=== PATIENT | male | born 1945 | race Caucasian/White ===

== ENCOUNTER 2020-12-05 02:04 | Inpatient (IN) | payer MEDICARE ==
[~2020-12-05] VITALS: Ht 182.9 cm; Wt 91.5 kg
[~2020-12-05 02:04] MED LIST: Percocet 5-3251 EACH PO; VICODIN ES 7.51 EACH PO; Zofran Odt4 MG SL
[2020-12-05] MEDS ORDERED: ASPI81CH PO (02:16)
[2020-12-05 03:56] LABS: BASOPHILS ABSOLUTE AUTO 0.02 K/mm3 (0.00-0.23); BASOPHILS PERCENT AUTO 0 % (0-2); EOSINOPHILS ABSOLUTE AUTO 0.01 K/mm3 (0.00-0.68); EOSINOPHILS PERCENT AUTO 0 % (0-6); Hematocrit 29.7 % (37.0-53.0); Hemoglobin 10.8 g/dL (13.5-17.5); IMMATURE GRAN ABSOLUTE AUTO 0.03 K/mm3 (0.00-0.10); IMMATURE GRAN PERCENT AUTO 1 % (0-1); LYMPHOCYTES ABSOLUTE AUTO 0.49 K/mm3 (0.84-5.20); LYMPHOCYTES PERCENT AUTO 10 % (21-46); MONOCYTES ABSOLUTE AUTO 0.75 K/mm3 (0.16-1.47); MONOCYTES PERCENT AUTO 15 % (4-13); Mean Corpuscular HGB 40.9 pg (26.0-34.0); Mean Corpuscular HGB Conc 36.4 g/dL (31.5-36.5); Mean Corpuscular Volume 113 fL (80-100); Mean Platelet Volume 12.5 fL (9.1-12.4); NEUTROPHILS PERCENT AUTO 74 % (41-73); NRBC ABSOLUTE 0.03 K/mm3 (0.00-0.02); NRBC Auto 0.6 /100 WBC (0.0-0.2); Platelet Count 52 K/mm3 (150-400); RDW Coefficient Variation 15.1 % (11.7-14.2); RDW Standard Deviation 61.7 fL (35.1-46.3); Red Blood Cell Count 2.64 M/mm3 (4.30-5.90)
[2020-12-05 04:08] LABS: International Normalized Ratio 1.89; Prothrombin Time Results 19.5 Sec (9.7-11.5)
[2020-12-05 04:10] LABS: Creatine Kinase MB 1.8 ng/mL (0.0-3.6); Ethanol (Alcohol), Blood, Med <3 mg/dL
[2020-12-05 04:19] LABS: Acetaminophen, Random <2.0 ug/mL (10.0-30.0); Alanine Aminotransfer (ALT/SGP 29 U/L (12-78); Albumin, Blood 2.7 g/dL (3.4-5.0); Albumin/Globulin Ratio 0.6 (0.8-1.8); Alk Phos 84 U/L (50-136); Anion Gap 16 mmol/L (6-16); Aspartate Aminotrans (AST/SGOT 149 U/L (12-37); Bilirubin, Total 16.6 mg/dL (0.1-1.0); Blood Urea Nitrogen 28 mg/dL (8-24); Bun/Creatinine Ratio 25.5 (12.0-20.0); CO2, Blood 26 mmol/L (21-32); CPK Creatine Kinase 276 U/L (39-308); Chloride, Blood 98 mmol/L (98-108); Creatine Kinase MB Index 0.7 (0.0-4.0); Globulin, Blood 4.4 g/dL (2.2-4.0); Glomerular Filtration Rate >60 (60-); Glucose, Blood 128 mg/dL (70-99); Magnesium, Blood 1.1 mg/dL (1.6-2.4); Phosphorus, Blood 1.6 mg/dL (2.5-4.9); Potassium, Blood 4.6 mmol/L (3.5-5.5); Salicylate <1.7 mg/dL (2.8-20.0); Sodium, Blood 140 mmol/L (136-145); Total Protein, Blood 7.1 g/dL (6.4-8.2)
--- NOTE | 2020-12-05 07:40 | NUR ---
RECIEVED REPORT FROM ОЛЬГА GRIFFIN. PATIENT TO ROOM AT 0645 VIA STRETCHER. CHARGE NURSE KRISTIAN IN ROOM UPON PATIENT ARRIVAL.
--- NOTE | 2020-12-05 08:06 | NUR ---
ADMIT NOTE PATIENT ADMITTED FROM THE ER AT APPROX 0645. PATIENT PROVIDED WITH A BED BATH AND LR BOLUS STARTED. PATIENT SETTLED IN AND ORIENTED TO THE ROOM, UNIT, AND CALL LIGHT. PATIENT ABLE TO STATE THAT HE WAS AT THE HOSPITAL BUT THOUGHT HE MIGHT BE IN [place], PATIENT APPEARS TO REORIENT WELL AT THIS TIME. PATIENT COOPERATIVE UPON ADMIT.
--- NOTE | 2020-12-05 10:48 | NUR ---
PT SLEEPING THROUGHOUT THE MORNING. ALERT TO HIMSELF AND PLACE. NOT ABLE TO STATE DATE. IRRITATED WITH QUESTIONS AND CARE AND STATES "LEAVE ME ALONE". POWERGLIDE IN XIMENA. AND IV TO LEFT WRIST. THIAMINE, POTASSIUM PHOSPHATE, ANTIBIOTICS AND MAG INFUSING. LUNGS SOUNDING COARSE WITH EXPIRATORY WHEEZE. ON 2 L O2 SATING ABOVE 92%. TELE SHOWING SINUS WITH PVC'S AND PAC'S. DENIES PAIN. MID-MOD EDEMA NOTED IN BLE. BRUISING SCATTERED THROUGHOUT. SKIN YELLOW IN COLORING. EDUCATED WEALTH MANAGEMENT DIRECTOR LIGHT, SAFETY AND FALL PREVENTION. THIS AM CIWA 4, PATIENT NAUSEOUS, MEDICATED PER EMAR WITH GOOD RELIEF. WILL CONTINUE TO MONITOR.
[2020-12-05 14:38] LABS: Albumin, Blood 2.2 g/dL (3.4-5.0); Anion Gap 8 mmol/L (6-16); Blood Urea Nitrogen 27 mg/dL (8-24); Bun/Creatinine Ratio 24.5 (12.0-20.0); CO2, Blood 32 mmol/L (21-32); Calcium, Blood 8.6 mg/dL (8.5-10.1); Chloride, Blood 101 mmol/L (98-108); Glomerular Filtration Rate >60 (60-); Glucose, Blood 165 mg/dL (70-99); Magnesium, Blood 1.9 mg/dL (1.6-2.4); Phosphorus, Blood 1.8 mg/dL (2.5-4.9); Potassium, Blood 2.8 mmol/L (3.5-5.5); Sodium, Blood 141 mmol/L (136-145)
--- NOTE | 2020-12-05 15:55 | NUR ---
PT SON IN ROOM VISITING. SLEEPING ON AND OFF. DENIES PAIN. WHEN DOING CARES PT STATES "I JUST WANT TO BE LEFT ALONE". CIWA 8, ATIVAN PROVIDED PER EMAR. TREMOR OBSERVED IN BILATERAL HANDS. ATTENDS IN PLACE. BATHROOM/ELIMINATION OFFERED HOURLY. VITAL SIGNS STABLE. WILL CONTINUE TO MONITOR.
--- NOTE | 2020-12-05 16:54 | NUR ---
Pt's son requested a meeting with Palliative today. Met with pt's son Clint in pt's room. Pt is non-responsive at this time, but resp are even, unlabored and he is on 02. FLACC scale shows pain at 0 at this time. Clint states the patient has been a heavy drinker for as long as he can remember, and over time, the pt's overall condition has declined. He has maintained a relationship with the pt, but the continued drinking has put a strain on things. Clint currently lives in [place], and is concerned about planning for the future. He states he and his dad recently had a conversation in which the pt told him he would not want to be resuscitated, have a feeding tube or be placed on mechanical ventilation. I assisted pt with filling out a POLST, and will request signature by the hospitalist this evening. Pt's son Clint is aware that pt's condition could improve slightly, or may continue to decline.
--- NOTE | 2020-12-05 18:24 | NUR ---
PT ALERT TO SELF. LETHARGIC AND SLEEPING THROUGHOUT THE SHIFT. ON 1 L 02 SATING ABOVE 92%. TELE SHOWING AFIB, HR 90-100'S. DENIES PAIN. ASKS TO BE LEFT ALONE WHEN STAFF IN ROOM. SON IN TO VISIT THIS AFTERNOON AND HAD MEETING WITH PALLIATIVE CARE. POLST IN ROOM TO BE SIGNED. LR, THIAMINE AND K PHOS INFUSING. NEW ORDERS FOR PRN BLADDER SCAN AND STRAIGHT CATH PLACED. ENULOSE GIVEN X3 THIS SHIFT. SKIN JAUNDICED AND BRUISING/DISCOLORATION THROUGHOUT. MEPILEX PLACED OVER RED COCCYX. ATTENDS IN PLACE. GLASSES, CELLPHONE AND WALLET AT BEDSIDE. Q2 TURNING. PT ABLE TO TURN SELF IN BED. VITAL SIGNS REMAIN STABLE. WILL CONTINUE TO MONITOR AND REPORT OFF.
--- NOTE | 2020-12-05 18:49 | NUR ---
DNR BAND PLACED ON RIGHT WRIST, VERIFIED WITH MARCO ANTONIO RN.
[2020-12-06 04:01] LABS: BASOPHILS ABSOLUTE AUTO 0.02 K/mm3 (0.00-0.23); BASOPHILS PERCENT AUTO 1 % (0-2); EOSINOPHILS ABSOLUTE AUTO 0.04 K/mm3 (0.00-0.68); EOSINOPHILS PERCENT AUTO 1 % (0-6); Hematocrit 27.2 % (37.0-53.0); Hemoglobin 9.6 g/dL (13.5-17.5); IMMATURE GRAN ABSOLUTE AUTO 0.03 K/mm3 (0.00-0.10); IMMATURE GRAN PERCENT AUTO 1 % (0-1); LYMPHOCYTES ABSOLUTE AUTO 0.57 K/mm3 (0.84-5.20); LYMPHOCYTES PERCENT AUTO 16 % (21-46); MONOCYTES ABSOLUTE AUTO 0.49 K/mm3 (0.16-1.47); MONOCYTES PERCENT AUTO 13 % (4-13); Mean Corpuscular HGB 40.2 pg (26.0-34.0); Mean Corpuscular HGB Conc 35.3 g/dL (31.5-36.5); Mean Corpuscular Volume 114 fL (80-100); Mean Platelet Volume 10.9 fL (9.1-12.4); NEUTROPHILS ABSOLUTE AUTO 2.53 K/mm3 (1.96-9.15); NEUTROPHILS PERCENT AUTO 69 % (41-73); RDW Coefficient Variation 15.3 % (11.7-14.2); RDW Standard Deviation 64.7 fL (35.1-46.3); Red Blood Cell Count 2.39 M/mm3 (4.30-5.90); White Blood Cell Count 3.68 K/mm3 (4.00-11.30)
[2020-12-06 04:10] LABS: Platelet Count 41 K/mm3 (150-400)
[2020-12-06 04:22] LABS: Alanine Aminotransfer (ALT/SGP 30 U/L (12-78); Albumin, Blood 2.2 g/dL (3.4-5.0); Albumin/Globulin Ratio 0.6 (0.8-1.8); Alk Phos 79 U/L (50-136); Anion Gap 7 mmol/L (6-16); Aspartate Aminotrans (AST/SGOT 114 U/L (12-37); Bilirubin, Total 12.4 mg/dL (0.1-1.0); Blood Urea Nitrogen 24 mg/dL (8-24); Bun/Creatinine Ratio 25.8 (12.0-20.0); CO2, Blood 29 mmol/L (21-32); Calcium, Blood 8.1 mg/dL (8.5-10.1); Chloride, Blood 103 mmol/L (98-108); Creatinine, Blood 0.93 mg/dL (0.60-1.20); Globulin, Blood 3.7 g/dL (2.2-4.0); Glomerular Filtration Rate >60 (60-); Glucose, Blood 134 mg/dL (70-99); Magnesium, Blood 1.6 mg/dL (1.6-2.4); Phosphorus, Blood 2.1 mg/dL (2.5-4.9); Potassium, Blood 2.8 mmol/L (3.5-5.5); Sodium, Blood 139 mmol/L (136-145); Total Protein, Blood 5.9 g/dL (6.4-8.2)
--- NOTE | 2020-12-06 05:59 | NUR ---
SHIFT SUMMARY PT WAS LETHARGIC AND DIFFICULT TO AROUSE T/O THE NIGHT. HE NEEDED CONTINOUS STIMULATION TO KEEP HIS EYES OPEN. PT WAS ABLE TO WAKE UP ENOUGH TO TAKE PO LACTULOSE AND SWALLOW, PT STATED WITHOUT DIFFICULTIES. SPEECH WAS GARBLED AND DIFFICULT TO UNDERSTAND. PT WAS CONFUSED AT TIMES SAYING "I WANT DONT LIKE PEANUTS". NEURO STATUS WAS UNCHANGED T/O THE NIGHT. PT WAS VERY WEAK, COULD ONLY LIFT ARMS SLIGHTLY. TRACK SWEEPER WAS EQUAL AND WEAK IN BOTH HANDS. PT ABLE TO FOLLOW MOST SIMPLE COMMANDS. VITALS WERE STABLE. AFIB LOW 100'S AVG. PT WAS INCONTINENT OF URINE T/O THE NIGHT WITH SEVERAL LARGE EPISODS NEEDING COMPLETE BED CHANGE. URINE VERY DARK/ORNAGE WITH FOUL ODOR. PT SLEPT T/O MOST OF THE NIGHT.
[2020-12-06 09:09] LABS: Source, Urine Catheter
[2020-12-06 09:21] LABS: Blood, Urine 1+ (Neg); Glucose Qualitative, Urine Neg (Neg); Ketones, Urine 1+ (Neg); Leukocyte Esterase, Urine 1+ (Neg); Nitrite, Urine Neg (Neg); Protein, Urine Neg (Neg); Urobilinogen, Urine 4+ (Normal); pH, Urine 6.5 (5.0-8.0)
[2020-12-06 09:38] LABS: Bilirubin, Urine 3+ (Neg)
[2020-12-06 09:45] LABS: Appearance, Urine Clear (Clear); Color, Urine Amber (P-Yellow)
[2020-12-06 09:48] LABS: Bacteria Few /hpf; Hyaline Casts 0-2 /lpf (0-2); Red Blood Cells, Urine 0-2 /hpf (0-2); Squamous Epithelial Cells Few /hpf (Few); White Blood Cells, Urine 0-2 /hpf (0-5)
--- NOTE | 2020-12-06 11:44 | NUR ---
Pt is lethargic, but engaging in some conversation. States he knows he is in the hospital. Able to follow directions, also states that he is not in pain, and says, "thank you very much " after care is given. Particpating in oral care, and attempting to assist with repositioning. Still some confusion and lethargy.
[2020-12-06 14:59] LABS: Albumin, Blood 1.8 g/dL (3.4-5.0); Anion Gap 7 mmol/L (6-16); Blood Urea Nitrogen 23 mg/dL (8-24); Bun/Creatinine Ratio 21.1 (12.0-20.0); CO2, Blood 30 mmol/L (21-32); Calcium, Blood 7.6 mg/dL (8.5-10.1); Chloride, Blood 103 mmol/L (98-108); Creatinine, Blood 1.09 mg/dL (0.60-1.20); Glomerular Filtration Rate >60 (60-); Glucose, Blood 134 mg/dL (70-99); Phosphorus, Blood 2.8 mg/dL (2.5-4.9); Potassium, Blood 3.5 mmol/L (3.5-5.5); Sodium, Blood 140 mmol/L (136-145)
--- NOTE | 2020-12-06 17:19 | NUR ---
SUMMARY The pt is still sleepy, but more coherent in conversation. Responding to simple directions. He had some water to drink, and said that it was enough. Incontinent of 4+ liquid stools today, the last 3 were dark brown in color. Asked if he needed to use the urinal, and he said that he didn't. Sleeping in between care.
--- NOTE | 2020-12-07 03:11 | NUR ---
CALLED DR ROBERTO REGARDING PT NEEDING AN ORDER OF TYLENOL DUE TO TEMP. ORDER BY TELEPHONE OF TYLENOL [address] Q6.
[2020-12-07 04:39] LABS: BASOPHILS ABSOLUTE AUTO 0.02 K/mm3 (0.00-0.23); BASOPHILS PERCENT AUTO 0 % (0-2); EOSINOPHILS ABSOLUTE AUTO 0.04 K/mm3 (0.00-0.68); EOSINOPHILS PERCENT AUTO 1 % (0-6); Hemoglobin 8.9 g/dL (13.5-17.5); IMMATURE GRAN ABSOLUTE AUTO 0.05 K/mm3 (0.00-0.10); IMMATURE GRAN PERCENT AUTO 1 % (0-1); LYMPHOCYTES ABSOLUTE AUTO 0.63 K/mm3 (0.84-5.20); LYMPHOCYTES PERCENT AUTO 9 % (21-46); MONOCYTES ABSOLUTE AUTO 1.01 K/mm3 (0.16-1.47); MONOCYTES PERCENT AUTO 15 % (4-13); Mean Corpuscular HGB 40.5 pg (26.0-34.0); Mean Corpuscular HGB Conc 35.6 g/dL (31.5-36.5); Mean Corpuscular Volume 114 fL (80-100); Mean Platelet Volume 10.4 fL (9.1-12.4); NEUTROPHILS ABSOLUTE AUTO 5.12 K/mm3 (1.96-9.15); NEUTROPHILS PERCENT AUTO 75 % (41-73); NRBC ABSOLUTE 0.02 K/mm3 (0.00-0.02); NRBC Auto 0.3 /100 WBC (0.0-0.2); Platelet Count 59 K/mm3 (150-400); RDW Coefficient Variation 16.4 % (11.7-14.2); RDW Standard Deviation 66.9 fL (35.1-46.3); White Blood Cell Count 6.87 K/mm3 (4.00-11.30)
[2020-12-07 04:57] LABS: Albumin, Blood 1.9 g/dL (3.4-5.0); Albumin/Globulin Ratio 0.6 (0.8-1.8); Bilirubin, Total 11.1 mg/dL (0.1-1.0); Bun/Creatinine Ratio 21.4 (12.0-20.0); Calcium, Blood 7.5 mg/dL (8.5-10.1); Creatinine, Blood 1.26 mg/dL (0.60-1.20); Globulin, Blood 3.3 g/dL (2.2-4.0); Magnesium, Blood 1.6 mg/dL (1.6-2.4); Potassium, Blood 3.3 mmol/L (3.5-5.5); Total Protein, Blood 5.2 g/dL (6.4-8.2)
--- NOTE | 2020-12-07 05:28 | NUR ---
SHIFT SUMMARY PT IS ALERT AT TIMES AND IS CONVERSING WITH STAFF. HE HAS BEEN FOLLOWING COMMANDS AND THERE ARE NO SIGNS OF AGITAION BUT SOME CONFUSION AT TIMES. HE WILL ASK FOR ICE CHIPS. HE HAS ALSO ASKED IF HE CAN TALK TO THE DOCTOR SO THAT HE CAN GO HOME. VITALS ARE STABLE AND THERE ARE NO ACUTE CHANGES. PT IS SATING WITH >92% ON ROOM AIR AND DENIES SOB. PT DENIES PAIN. PT HAS HAD A COUPLE OF LOOSE STOOLS DURING THE SHIFT. PT HAS WEAKNESS AND IS BEDREST.
--- NOTE | 2020-12-07 07:53 | NUR ---
Pt is awake, talking, and saying that he would really like to get out of here. STates he would like a pepsi. Vital signs taken, and blood pressure noted lower than yesterday. He is alert, and says that he wants to go home. Able to sit on side of bed, and transfer to chair with moderate assistance, using walker and the gait belt. STates that feels better. Given a pepsi to drink. He has no problem staying awake right now. STates that he is not hungry. Also states that he feels a little short winded with the activity. No dyspena noted, carrying on conversation, slowly, but appropriately.
--- NOTE | 2020-12-07 10:02 | NUR ---
Dr. Mercer here to see the patient. Silvia GRECO is working with the patient.
--- NOTE | 2020-12-07 13:51 | NUR ---
Pt states that he is having trouble at times swallowing. He does not have any teeth. Diet changed to puree. Waiting for swallow eval with speech therapist. Pt sitting upright, drinking pepsi and milk at this time. Declined his tomato soup, applesauce, pudding and soft diet.
--- NOTE | 2020-12-07 14:15 | NUR ---
Pt states that he does not feel urge to void. Noted bladder scan order from admission. Bladder scan done, 214 cc urine noted. Pt denies urge to void. He is sleepy.
--- NOTE | 2020-12-07 18:36 | NUR ---
Pt has been sleepy today, but wakes up very easily and when awake is conversant, able to cooperate with care, able to eat and drink with assistance, and help with transfers using the walker. He was up in the chair for breakfast and dinner, for a total of about 4-5 hours, also during that time he was working with therapists. he is still confused, but oriented to person, place, and following directions. Lacks insight into his limitations and current illness. Very weak, requiring a lot of assistance for his meals, toileting, repositioning in bed, and hygiene for incontinence of stool and urine. He had two very large liquid brown stools this evening, over which he showed no control of his bowels, although we did attempt to get him to the BSC the second time. He is sleeping when not being given care by staff. shows no attempt to get out of bed independently, but bed/tab alarms are in use when he is in the bed or the chair.
--- NOTE | 2020-12-07 20:59 | NUR ---
ASSUME CARE PT IS ALERT. HE IS ORIENTED TO PLACE AND SELF. PT IS PLEASANT AND MORE ALERT THAN LAST NIGHT AND IS CONVERSING MORE. PT ANSWERS QUESTIONS AND ASKS FOR WHAT HE IS NEEDING. PT IS WEAK AND NEEDS ASSISTANCE FOR ROLLING AND REPOSITIONING. PT HAS BRIEF IN PLACE AND IS INCONT OF STOOL AND URINE.
--- NOTE | 2020-12-07 21:47 | NUR ---
PT SON DOREEN CALLED. THIS NURSE WENT INTO THE ROOM TO HAVE VERBAL CONSENT FROM PATIENT FOR UPDATE AND PATIENT REFUSED. STS "NO, I WILL CALL HIM LATER" AND REACHED FOR HIS PHONE AND HELD IT IN HAND BUT DID NOT ATTEMPT TO TURN IT ON OR DIAL.
--- NOTE | 2020-12-07 22:50 | NUR ---
CALLED REPORT TO MORIS ROLON ON MEDICAL FLOOR. PT TX TO ROOM 333.
--- NOTE | 2020-12-07 23:35 | NUR ---
ASSUMED CARE. JJ JUST ARRIVED TO THE UNIT, RM 333. ALERT AND ORIENTED X2, VERY FATIQUED. JAUNDICE. LUNGS CLEAR WITH DIMINISHED BASES. HR IRREGULAR, ON TELE. ATTENDS IN PLACE, DRY HE JUST GOT A BED BATH AND COMPLETE CHANGE. NO EDEMA BLE AND HAND. ABDOMIN SLIGHTLY DISTENDED, FIRM, HYPERACTIVE BT. BEEN HAVING LOOSE STOOLS. DID NOT REMEMBER HOW TO USE THE CALL LIGHT, ORIENTED HIM TO IT AGAIN AND THE ROOM. BED ALARM IS ON. CALL LIGHT IN HAND. WILL CONTINUE TO MONITOR.
--- NOTE | 2020-12-08 05:20 | NUR ---
SHIFT SUMMARY: PATIENT ARRIVED TO THE FLOOR AROUND 3 AM. ALERT ORIENTED TO SELF AND PLACE, CONFUSED OTHER TIMES. FOLLOWS DIRECTION WELL. ABLE TO ANSWER QUESTIONS. DENIED ANY PAIN. JAUDICE T/O. ABDOMIN SLIGHT DISTENTION, FIRM, HYPERACTIVE BOWEL TONES. REDNESS IN GROIN AND BOTTOM, CREAM APPLIED. URINE IS VERY DARK IN COLOR, SLIGHT ODOR. INCONTIENT. NO STOOLS SINCE HE GOT TO THE FLOOR. SLEEPS WELL. BED ALARM IS ON, CALL LIGHT IS IN REACH. WILL CONTINUE TO MONITOR TILL DAYSHIFT ARRIVES.
[2020-12-08 05:32] LABS: BASOPHILS ABSOLUTE AUTO 0.02 K/mm3 (0.00-0.23); BASOPHILS PERCENT AUTO 0 % (0-2); EOSINOPHILS ABSOLUTE AUTO 0.04 K/mm3 (0.00-0.68); EOSINOPHILS PERCENT AUTO 1 % (0-6); Hematocrit 24.3 % (37.0-53.0); Hemoglobin 8.4 g/dL (13.5-17.5); IMMATURE GRAN ABSOLUTE AUTO 0.04 K/mm3 (0.00-0.10); IMMATURE GRAN PERCENT AUTO 1 % (0-1); LYMPHOCYTES ABSOLUTE AUTO 0.74 K/mm3 (0.84-5.20); LYMPHOCYTES PERCENT AUTO 14 % (21-46); MONOCYTES ABSOLUTE AUTO 0.87 K/mm3 (0.16-1.47); MONOCYTES PERCENT AUTO 17 % (4-13); Mean Corpuscular HGB Conc 34.6 g/dL (31.5-36.5); Mean Corpuscular Volume 116 fL (80-100); Mean Platelet Volume 10.5 fL (9.1-12.4); NEUTROPHILS ABSOLUTE AUTO 3.45 K/mm3 (1.96-9.15); NEUTROPHILS PERCENT AUTO 67 % (41-73); RDW Coefficient Variation 16.6 % (11.7-14.2); RDW Standard Deviation 69.5 fL (35.1-46.3); White Blood Cell Count 5.16 K/mm3 (4.00-11.30)
[2020-12-08 05:39] LABS: Platelet Count 49 K/mm3 (150-400)
[2020-12-08 05:58] LABS: Albumin, Blood 1.8 g/dL (3.4-5.0); Albumin/Globulin Ratio 0.6 (0.8-1.8); Bilirubin, Total 11.2 mg/dL (0.1-1.0); Bun/Creatinine Ratio 21.2 (12.0-20.0); Calcium, Blood 7.4 mg/dL (8.5-10.1); Creatinine, Blood 1.89 mg/dL (0.60-1.20); Globulin, Blood 3.2 g/dL (2.2-4.0); Magnesium, Blood 1.7 mg/dL (1.6-2.4); Phosphorus, Blood 2.6 mg/dL (2.5-4.9); Potassium, Blood 3.2 mmol/L (3.5-5.5)
--- NOTE | 2020-12-08 07:57 | NUR ---
DENIES ANY AUDITORY OR VISUAL HALLUCINATIONS.STS WAS HEARING AND SEEING THINGS IN ROOM LAST NIGHT. STS NORMALLY HAS SLIGHT TREMOR RT HAND. KNOWS MONTH AND "AROUND THE 4TH".CALL LIGHT CLOSE BY. AWARE NEEDS TO CALL FOR ASSISTANCE. STS NORMALLY LIVES ALONE. UNLABORED RESPIRATIONS. IN AFIB. WCTM
--- NOTE | 2020-12-08 08:40 | NUR ---
PER SPEECH THERAPY PATIENT NPO TILL EVALUATED. PATIENT ALREADY HAD 1/2 OF BREAKFAST. NO COUGHING HEARD FROM PATIENT THIS RN WAS ON COMPUTER OUTSIDE OF ROOM.
--- NOTE | 2020-12-08 09:30 | NUR ---
RECEIVED CALL FROM [facility] TECH WHO STS PATIENT IN SR W/PAC'S. HAS NOT BEEN IN AFIB TODAY AND WHEN ASKED TO CHECK RYTHMS FOR LAST NIGHT, STS SR W/PAC'S. WAYNE
--- NOTE | 2020-12-08 13:00 | NUR ---
HAVING VISUAL HALLUCINATIONS. ASKS RN TO PICK SOME OF THE GRAPES AND POINTS TO THE WALL. TALKS ABOUT THE HORSES OUT IN THE PARKING LOT AND STS THEY ARE NOT THERE RIGHT NOW. ASKS FOR THE PIE HE PUT IN THE FRIG "BEFORE IT GOES BAd." WAYNE
--- NOTE | 2020-12-08 17:54 | NUR ---
ALERT TO SELF. BROUGHT IN FEW DAYS AGO FOR FAILURE TO THRIVE AND WEAKNESS. UNSURE WHO BROUGHT HIM IN OR IF HE CALLED AMBULANCE(?). DRINKS ETOH DAILY AND WHEN ASKED ABOUT ETOH STS "HAVE NOT HAD ANY SINCE I'VE BEEN HERE." IMPULSIVE. TRIES TO GET OOB OFTEN WITHOUT ASKING FOR ASSISTANCE. 2 PERSON ASSIST PATIENT IS VERY WEAK,& UNABLE TO HOLD HIMSELF UP. WHEN SET UP ON SIDE OF BED WITH FEET DANGLING IS UNABLE TO HOLD HIS TRUNK UP AND LAYS BACK DOWN ON BED. BLE WITH EDEMA W/ SPLOTCHY COLORING. JAUNDICE T/O. BOTH IV'S WRAPPED WELL W/COBAN WITH LINES HIDDEN. 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 PATIENT WOULD NOT LEAVE TELE MONITOR ON. VERY FAINT REDNESS TO BUTTOCK AND BILATERAL INNER THIGHS WITH THIN LAYER BARRIER CREAM USED. POOR APPETITE. NEEDS TO BE WATCHED WHEN EATTING WILL PUT TOO MUCH IN MOUTH OR WILL ADD CONDIMENTS WHERE THEY SHOULD NOT GO.REPORT GIVEN TO LETI ROLON WITH PATIENT TRANSFERRED TO RM 348. BILATERAL INNER THIGH CREASES. THIN LAYER BARRIER CREAM USED.
--- NOTE | 2020-12-08 18:19 | NUR ---
PT TRANSFERED TO ROOM AT 1800. REPORT GIVEN PRIOR TO ARRIVAL. PT ALERT, BUT IMPULSIVE AND DOES NOT USE CALL LIGHT. CAMERA IS MONITORING FOR SAFETY. BED ALARM IS IN PLACE WITH CALL LIGHT AVAILBLE. PT NEEDS STANBY ASSIST FOR MEALS TO NOT ADAMES FOOD OR DRIKING. WILL CONTINUE TO MONITOR.
[2020-12-09 05:21] LABS: BASOPHILS ABSOLUTE AUTO 0.02 K/mm3 (0.00-0.23); BASOPHILS PERCENT AUTO 1 % (0-2); EOSINOPHILS ABSOLUTE AUTO 0.06 K/mm3 (0.00-0.68); EOSINOPHILS PERCENT AUTO 2 % (0-6); Hematocrit 21.4 % (37.0-53.0); Hemoglobin 7.6 g/dL (13.5-17.5); IMMATURE GRAN ABSOLUTE AUTO 0.05 K/mm3 (0.00-0.10); IMMATURE GRAN PERCENT AUTO 2 % (0-1); LYMPHOCYTES ABSOLUTE AUTO 0.51 K/mm3 (0.84-5.20); LYMPHOCYTES PERCENT AUTO 17 % (21-46); MONOCYTES ABSOLUTE AUTO 0.62 K/mm3 (0.16-1.47); MONOCYTES PERCENT AUTO 21 % (4-13); Mean Corpuscular HGB 40.9 pg (26.0-34.0); Mean Corpuscular HGB Conc 35.5 g/dL (31.5-36.5); Mean Corpuscular Volume 115 fL (80-100); Mean Platelet Volume 10.4 fL (9.1-12.4); NEUTROPHILS ABSOLUTE AUTO 1.68 K/mm3 (1.96-9.15); NEUTROPHILS PERCENT AUTO 57 % (41-73); RDW Coefficient Variation 15.9 % (11.7-14.2); RDW Standard Deviation 66.6 fL (35.1-46.3); Red Blood Cell Count 1.86 M/mm3 (4.30-5.90); White Blood Cell Count 2.94 K/mm3 (4.00-11.30)
[2020-12-09 05:24] LABS: Platelet Count 47 K/mm3 (150-400)
[2020-12-09 05:25] LABS: Bun/Creatinine Ratio 24.1 (12.0-20.0); Calcium, Blood 7.5 mg/dL (8.5-10.1); Creatinine, Blood 1.74 mg/dL (0.60-1.20); Potassium, Blood 3.2 mmol/L (3.5-5.5)
[2020-12-09 05:31] LABS: International Normalized Ratio 2.1; Prothrombin Time Results 21.5 Sec (9.7-11.5)
--- NOTE | 2020-12-09 07:02 | NUR ---
SHIFT SUMMARY PATIENT ALERT AND ORIENTED TO SELF. HAS HAD NO COMPLAINTS OF PAIN OR SHORTNESS OF BREATH. REQUIRED MEDICATION PER EMAR FOR ALCOHOL WITHDRAWL TWICE. IV IN L FOREARM REMOVED DUE TO INFILTRATION. PICC LINE PATENT AND INFUSING. BED IN LOWEST POSITION WITH WHEELS LOCKED AND ALARM ON. CALL LIGHT WITHIN REACH. REPORT GIVEN TO ONOMING RN.
--- NOTE | 2020-12-09 17:19 | NUR ---
Pt's son arrived, he is spending time at the bedside, and his sister is also visiting. They are discussing comfort care, but Dr. Stephenson feels it's too soon to make that change. I discussed this with pt's son and daughter who are happy with this information. I explained they will need to return to the one visitor per day policy unless pt is being treated on "Comfort Care". They verbalize understanding.
--- NOTE | 2020-12-09 17:20 | NUR ---
PT AOX1 AND HAS BEEN VERY SOMNOLENT TODAY, THIS HAS INCREASED THROUGH THE SHIFT. RT CAME TO DO A BREATHING TREATMENT AND PT WAS NOTED TO BE HAVING A LOT OF PAUSES WHILE BREATHING AND HIS O2 WAS DROPPING. PT HAD O2 ADDED AND DR HINES AND THE CASEMANAGER WERE NOTIFIED. PT HAS WOKE UP FOR MEDS, BUT GOES BACK TO SLEEP IMMEDIATELY. PT IS INCONTINENT AND HAS TO BE CHANGED BY TWO PEOPLE. PT WAS HANGING LEGS OVER AT START OF SHIFT, BUT HAS NOT DONE THIS FOR THE LAST HALF OF SHIFT HE HAS NOT TRIED THIS AT ALL. FAMILY HAS BEEN CALLED IN AND PALLIATIVE CARE IS WORKING WITH THEM. BED ALARM IS IN PLACE AND WILL CONTINUE TO MONITOR.
--- NOTE | 2020-12-10 04:14 | NUR ---
SHIFT SUMMARY A&O X 3; NOT ORIENTED TO TIME. CIWA ASSESSED; SCORE BETWEEN 7&4. PT & FAMILY DISCUSSING COMFORT CARE. PT RESTED THROUGHOUT THE NIGHT. BED IN LOWEST POSITION WITH WHEELS LOCKED AND ALARM ON. CALL LIGHT WITHIN REACH. WILL CONTINUE TO MONITOR UNTIL DAY RN COMES ON.
[2020-12-10 05:42] LABS: BASOPHILS ABSOLUTE AUTO 0.03 K/mm3 (0.00-0.23); BASOPHILS PERCENT AUTO 1 % (0-2); EOSINOPHILS ABSOLUTE AUTO 0.05 K/mm3 (0.00-0.68); EOSINOPHILS PERCENT AUTO 2 % (0-6); Hematocrit 20.1 % (37.0-53.0); IMMATURE GRAN ABSOLUTE AUTO 0.05 K/mm3 (0.00-0.10); IMMATURE GRAN PERCENT AUTO 2 % (0-1); LYMPHOCYTES ABSOLUTE AUTO 0.42 K/mm3 (0.84-5.20); LYMPHOCYTES PERCENT AUTO 18 % (21-46); MONOCYTES ABSOLUTE AUTO 0.51 K/mm3 (0.16-1.47); MONOCYTES PERCENT AUTO 22 % (4-13); Mean Corpuscular HGB 40.9 pg (26.0-34.0); Mean Corpuscular HGB Conc 34.8 g/dL (31.5-36.5); Mean Corpuscular Volume 118 fL (80-100); Mean Platelet Volume 11.5 fL (9.1-12.4); NEUTROPHILS ABSOLUTE AUTO 1.28 K/mm3 (1.96-9.15); NEUTROPHILS PERCENT AUTO 55 % (41-73); RDW Coefficient Variation 15.7 % (11.7-14.2); RDW Standard Deviation 67.5 fL (35.1-46.3); Red Blood Cell Count 1.71 M/mm3 (4.30-5.90); White Blood Cell Count 2.34 K/mm3 (4.00-11.30)
[2020-12-10 05:57] LABS: Albumin, Blood 2.9 g/dL (3.4-5.0); Albumin/Globulin Ratio 1.2 (0.8-1.8); Bilirubin, Total 12.3 mg/dL (0.1-1.0); Bun/Creatinine Ratio 26.3 (12.0-20.0); Calcium, Blood 7.5 mg/dL (8.5-10.1); Creatinine, Blood 1.37 mg/dL (0.60-1.20); Globulin, Blood 2.4 g/dL (2.2-4.0); Potassium, Blood 3.8 mmol/L (3.5-5.5); Total Protein, Blood 5.3 g/dL (6.4-8.2)
[2020-12-10 05:58] LABS: Platelet Count 47 K/mm3 (150-400)
--- NOTE | 2020-12-10 17:00 | NUR ---
I HAVE REVIEWED THE STUDENT'S DOCUMENTATION AND COMPLETED AN ASSESSMENT OF MY OWN, I AGREE WITH THE STUDENT'S FINDINGS.
--- NOTE | 2020-12-10 18:44 | NUR ---
SHIFT SUMMARY PATIENT ALERT X ORIENTATION VARIABLE 2-3 THIS SHIFT. PATIENT LETHARGIC THROUGH MUCH OF THIS SHIFT, SLEEPING THROUGH MUCH OF THE MORNING AND EARLY AFTERNOON. NO ACUTE CHANGES THIS SHIFT. PATIENT REMAINS ON 2L O2 THIS SHIFT. VISITOR IN THE ROOM THROUGHOUT THIS AFTERNOON. PATIENT CURRENTLY UP IN BED ON THE BEDPAN.
--- NOTE | 2020-12-10 19:46 | NUR ---
PT GAVE THIS STUDENT NURSE PERMISSION TO PROVIDE CARE ON 12/10/20.
[2020-12-11 05:33] LABS: BASOPHILS ABSOLUTE AUTO 0.02 K/mm3 (0.00-0.23); BASOPHILS PERCENT AUTO 1 % (0-2); EOSINOPHILS ABSOLUTE AUTO 0.06 K/mm3 (0.00-0.68); EOSINOPHILS PERCENT AUTO 3 % (0-6); Hematocrit 19.6 % (37.0-53.0); Hemoglobin 6.9 g/dL (13.5-17.5); IMMATURE GRAN ABSOLUTE AUTO 0.05 K/mm3 (0.00-0.10); IMMATURE GRAN PERCENT AUTO 2 % (0-1); LYMPHOCYTES ABSOLUTE AUTO 0.38 K/mm3 (0.84-5.20); LYMPHOCYTES PERCENT AUTO 18 % (21-46); MONOCYTES ABSOLUTE AUTO 0.44 K/mm3 (0.16-1.47); MONOCYTES PERCENT AUTO 21 % (4-13); Mean Corpuscular HGB 41.1 pg (26.0-34.0); Mean Corpuscular HGB Conc 35.2 g/dL (31.5-36.5); Mean Corpuscular Volume 117 fL (80-100); Mean Platelet Volume 10.3 fL (9.1-12.4); NEUTROPHILS PERCENT AUTO 56 % (41-73); Platelet Count 54 K/mm3 (150-400); RDW Coefficient Variation 15.7 % (11.7-14.2); RDW Standard Deviation 67.7 fL (35.1-46.3); Red Blood Cell Count 1.68 M/mm3 (4.30-5.90); White Blood Cell Count 2.15 K/mm3 (4.00-11.30)
--- NOTE | 2020-12-11 05:38 | NUR ---
SHIFT SUMMARY PT RESTED COMFORTABLY T/O MOST OF THE NIGHT 80%. AT SHIFT CHANGE 2 XR POTASSIUM CHLORIDE(PILL READ PC1) WERE FOUND UNDIGESTED IN BM 12/10 @ 1915; NO RECORD OF ADMIN SINCE ADMIT. ELEVATED BLE D/T INCREASING EDEMA. MEDICATED FOR FEVER X1; @ 100.6. TEMP NOW 98.2. CONTINENT/INCONTINENT. GAVE SM SIPS OF PEPSI T/O THE NIGHT. BED ALARM ON, BED IN LOWEST POSITION, CALL LIGHT WITHIN REACH. SCD IN PLACE. WILL CONTINUE TO MONITOR UNTIL DAY RN COMES ON.
[2020-12-11 05:39] LABS: Bun/Creatinine Ratio 20.8 (12.0-20.0); Calcium, Blood 7.6 mg/dL (8.5-10.1); Creatinine, Blood 1.3 mg/dL (0.60-1.20); Potassium, Blood 3.7 mmol/L (3.5-5.5)
--- NOTE | 2020-12-11 18:10 | NUR ---
I HAVE REVIEWED THE STUDENT NURSE DOCUMENTATION, CONDUCTED AN INDEPENDENT ASSESSMENT, AND AGREE WITH THE STUDENT'S ASSESSMENT.
--- NOTE | 2020-12-11 18:59 | NUR ---
SHIFT SUMMARY PATIENT ALERT, ORIENTED X3 THIS SHIFT. PATIENT MORE LETHARGIC THROUGH THIS AM. PATIENT RECEIVED 1 UNIT OF PRBC'S THIS SHIFT. PATIENT MORE ALERT THIS AFTERNOON AFTER ADMINISTRATION. PATIENT'S DAUGHTER IN THE ROOM THIS AFTERNOON. PATIENT REMAINS IN BED DUE TO LETHARGY. PATIENT DENIES NEEDS THROUGHOUT THIS SHIFT. PATIENT CURRENTLY LAYING IN BED SLEEPING.
--- NOTE | 2020-12-12 04:35 | NUR ---
SHIFT SUMMARY NO ACUTE CHANGES THIS SHIFT, PT STATES HE IS "FEELING BETTER", SLEPT T/O THE NIGHT ON ROOM AIR, O2 REMAINED GREATER THAN 90%, ASSISTED PT W/REPOS T/O THE NIGHT FOR COMFORT, BEDRESTING AT THIS TIME, CALL LIGHT IN REACH, BED ALARM ACTIVE, WILL CONT TO MONITOR UNTIL REPORT GIVEN TO DAY RN.
[2020-12-12 05:18] LABS: BASOPHILS ABSOLUTE AUTO 0.03 K/mm3 (0.00-0.23); BASOPHILS PERCENT AUTO 1 % (0-2); EOSINOPHILS ABSOLUTE AUTO 0.05 K/mm3 (0.00-0.68); EOSINOPHILS PERCENT AUTO 2 % (0-6); Hematocrit 22.2 % (37.0-53.0); Hemoglobin 7.7 g/dL (13.5-17.5); IMMATURE GRAN ABSOLUTE AUTO 0.13 K/mm3 (0.00-0.10); IMMATURE GRAN PERCENT AUTO 4 % (0-1); LYMPHOCYTES ABSOLUTE AUTO 0.42 K/mm3 (0.84-5.20); LYMPHOCYTES PERCENT AUTO 14 % (21-46); MONOCYTES ABSOLUTE AUTO 0.62 K/mm3 (0.16-1.47); MONOCYTES PERCENT AUTO 20 % (4-13); Mean Corpuscular HGB 39.1 pg (26.0-34.0); Mean Corpuscular HGB Conc 34.7 g/dL (31.5-36.5); Mean Corpuscular Volume 113 fL (80-100); Mean Platelet Volume 10.3 fL (9.1-12.4); NEUTROPHILS ABSOLUTE AUTO 1.85 K/mm3 (1.96-9.15); NEUTROPHILS PERCENT AUTO 60 % (41-73); Platelet Count 60 K/mm3 (150-400); RDW Standard Deviation 80.9 fL (35.1-46.3); Red Blood Cell Count 1.97 M/mm3 (4.30-5.90)
[2020-12-12 05:28] LABS: International Normalized Ratio 2.29; Prothrombin Time Results 23.4 Sec (9.7-11.5)
[2020-12-12 05:38] LABS: Anion Gap 6 mmol/L (6-16); Blood Urea Nitrogen 19 mg/dL (8-24); Bun/Creatinine Ratio 18.1 (12.0-20.0); CO2, Blood 25 mmol/L (21-32); Calcium, Blood 7.7 mg/dL (8.5-10.1); Chloride, Blood 107 mmol/L (98-108); Creatinine, Blood 1.05 mg/dL (0.60-1.20); Glomerular Filtration Rate >60 (60-); Glucose, Blood 107 mg/dL (70-99); Potassium, Blood 3.9 mmol/L (3.5-5.5); Sodium, Blood 138 mmol/L (136-145)
--- NOTE | 2020-12-12 20:11 | NUR ---
END OF SHIFT SUMMARY: PATIENT REPORTED SOME ABDOMINAL CRAMPING THIS MORNING. PATIENT DENIED NAUSEA. PATIENT ABLE TO HAVE A BOWEL MOVEMENT ON THE BED DIXON THAT HE REPORTED HELPED. BOWEL MOVEMENT WAS BROWN AND FORMED. NO SIGNS OF BLOOD OR BLEEDING. PATIENT REQUESTED THAT HE BE ABLE TO REST TODAY. PATIENT SLEPT MOST OF THE MORNING AND EARLY AFTERNOON. PATIENT EASILY AROUSABLE. PATIENT SAT UP FOR DINNER AND WAS ALERT. PATIENT REPORTED FEELING BETTER. PATIENT DECLINED TO WORK WITH PT/OT TODAY. PROVIDED ENCOURAGEMENT TO WORK WITH THEM TOMORROW.
--- NOTE | 2020-12-12 20:34 | NUR ---
ASSUMPTION OF CARE. AOX2, FORGETFUL AT TIMES. HAS PERIODS OF CONFUSION. VERY WEAK, BED BOUND. ABLE TO REPOSITION SSELF IN BED. JAUDICE, ABDOMIN DISTENDED, FIRM AND STATES HE HAS CRAMPING EVERY NOW AND THEN. NO NAUSEA. LUNG SOUNDS DIMINISHED WITH SOME WHEEZING IN THE LEFT SIDE. OCCATIONAL COUGH NO PRODUCTION. URINE IS LITTLE AT A TIME, VERY DARK YELLOW. ENCOURAGED FLUID INTAKE. ABLE TO USE CALL LIGHT APPROPRIATLY. DENIES ANY NEEDS AT THIS TIME. CALL LIGHT IS IN REACH.
[2020-12-13 05:02] LABS: Hematocrit 22.9 % (37.0-53.0); Mean Corpuscular HGB 39.6 pg (26.0-34.0); Mean Corpuscular HGB Conc 34.9 g/dL (31.5-36.5); Mean Corpuscular Volume 113 fL (80-100); Mean Platelet Volume 9.5 fL (9.1-12.4); Platelet Count 67 K/mm3 (150-400); RDW Coefficient Variation 18.2 % (11.7-14.2); RDW Standard Deviation 77.6 fL (35.1-46.3); Red Blood Cell Count 2.02 M/mm3 (4.30-5.90); White Blood Cell Count 3.62 K/mm3 (4.00-11.30)
--- NOTE | 2020-12-13 05:38 | NUR ---
SHIFT SUMMARY: AOX3, WITH FORGETFULNESS. WEAK, FAILURE TO THRIVE. JAUDICE. DISTENDED ABDOMEN FIRM, NO BM THIS SHIFT. ABLE TO TURN SELF IN BED. USES URINAL, URINE IS 100ML AT A TIME AND IS VERY DARK ORANGE. ENCOURAGED FLUID INTAKE. VS WNL, AFEBRILE. USES CALL LIGHT APPROPRIATLY. TAKES MEDS WITH NO PROBLEMS. OCCATIONAL ABDOMINAL CRAMPS, USES HEATING PAD FOR DISCOMFORT. H/H LEVELS AT 8 AND 22. PLATLETS STILL LOW. SLEPT OFF AND ON THIS SHIFT. NO OTHER CHANGES TO REPORT. CALL LIGHT REMAINS IN REACH, BED ALARM IS SEET.
--- NOTE | 2020-12-13 14:05 | NUR ---
Pt worked briefly with PT today, I was able to witness his level of participation, which was minimal. He did not appear motivated, as he had to be reminded and cued several times to look up, and to open his eyes to stand upright, and then shuffle approx 1 foot along the side of the bed. He repeated, "Ok, that's enough, I'm done" several times while the 2 therapists worked together with pt. Unsure how long this will continue with minimal participation from pt. I attempted to make a visit with pt after therapy was complete, but pt states he isn't interested in conversation at this time.
--- NOTE | 2020-12-13 15:29 | NUR ---
SHIFT SUMMARY NO ACUTE CHANGES TO PRESENT THIS SHIFT. PT HAS SLEPT MOST OF THE DAY. AGREED TO WORK WITH PT/OT TODAY, BUT THEN WANTS THEM TO COME BACK LATER WHEN THEY ARE HERE TO WORK WITH HIM. PT IS DIFFICULT TO MOTIVATE TO PARTICIPATE IN CARE. PT HAS BEEN CONTINENT AND INCONTINENT OF URINE. 1ST BLADDER SCAN FOR THIS SHIFT WAS 167ml. SKIN JAUNDICE FROM LIVER FAILURE. MEDS TAKEN WHOLE WITH APPLESAUCE W/O DIFFICULTY. REPORTED OCCASSIONAL ABD CRAMPING TO DR HARGROVE WHEN IN TO SEE HIM; REPORTED CRAMPING MINIMAL AND TOLERABLE TODAY. DENIED FURTHER NEEDS AT THIS TIME. CALL LT IN REACH.
--- NOTE | 2020-12-14 00:46 | NUR ---
JJ COMPLAINING OF DISCOMFORT, HAS NOT VOIDED MUCH TONIGHT, BLADDER SCAN SHOWED OVER 300. ATTEMPTED TO STRAIGHT CATH AND HE PUSHED OUT THE CATHETER AT FIRST AND VOIDED 100CC, THEN ATTEMPTED TO DO THE STRAIGHT CATH AND HE WAS HITTING THE PROSTATE AND WOULD NOT GO FURTHER, ONLY A SMALL AMOUNT MORE CAME OUT. PATIENT WOULD BENIFIT FROM FLOWMAX
--- NOTE | 2020-12-14 05:10 | NUR ---
SHIFT CHANGE. FTT, GENERALIZED WEAKNESS. JAUDICE. POOR INTAKE. SLEEPS MOST OF THE TIME. ABLE TO USE URINAL IN BED. ABLE TO REPOSITION SELF. DID HAVE LIGHTHEADNESS WHEN CHANGING HIS ATTENDS, RESOLVED ONCE HE WAS DONE MOVEING. ENCOURAGED HIM TO GET UP TO CHAIR TODAY AND OUT OF THE BED. URINE OUTPUT DARK ORANGE STILL ONLY URINATING 100CC AT A TIME. BLADDER SCAN WAS OVER 300 WITH UNCOMFORTABLE ABDOMIN. WAS ABLE TO VOID 100, DIFFICULT TO DUE STRAIGHT CATH WITH COUDE DUE TO VERY ENLARGED PROSTATE. WILL PASS ON TO DAYSHIFT REAGARDING NEED FOR UROLOGIST CONSULT. EDEMA IN BUE, BLE. BRUISING IMPROVING, REDNESS TO GROIN IMPROVED. VS WNL, AFEBRILE. WILL CONTINUE TO MONITOR, CALL LIGHT IN REACH, BED ALARM ON.
--- NOTE | 2020-12-14 12:19 | NUR ---
Pt appears to be asleep at this time, but opens his eyes when spoken to. Pt is working with therapies, with the hope of placement in [place] at a SNF, as his son lives and works in [place]. Pt's son appears to understand pt's long-term prognosis is fair. Denies any concerns to discuss at this time.
--- NOTE | 2020-12-14 17:24 | NUR ---
SHIFT SUMMARY PT MORE ALERT TODAY. PT IS ABLE TO TOLERATE AND WORK WITH PHYSICAL THERAPIST TODAY. PT TOLERATED PUREE DIET. POWERGLIDE DRESSING CHANGED TODAY. PT IS ABLE TO MAKE NEEDS KNOWN. AWAITS PLACEMENT. STRAIGHT CATH PER ORDER. BED IS IN THE LOWEST POSITION AND CALL LIGHT WITHIN REACH.
--- NOTE | 2020-12-15 05:01 | NUR ---
SHIFT SUMMARY ASSUMED CARE OF PT AT 1900. PT IS A/OX2 WITH FORGETFULNESS. HEART SOUNDS REGULAR, LUNG SOUNDS CLEAR. PT IS VERY JAUNDICED WITH BRUSING T/O THIS BODY. PT WAS STRAIGHT CATHED FOR BLADDER SCAN OVER 300. WHEN STRAIGHT CATH WAS ENTERED, ONLY 50CC CAME OUT ALONG WITH SOME BLOOD. SECOND ATTEMPT WITH COUDE ONLY HAD 10CC MORE. BLADDER SCAN WITH CATHETER IN WAS 175. PT STILL VOIDED IN SMALL AMOUNTS DURING THE NIGHT. BLADDER SCAN MAY BE SKEWED DUE TO ACITES. PT STILL HAS NO BM THIS SHIFT DESPITE LACTALOSE. CALL LIGHT IN REACH, BED IN LOWEST POSTION, BED ALARM ON.
[2020-12-15 11:54] LABS: Influenza A, PCR NEGATIVE (NEGATIVE); Influenza B, PCR NEGATIVE (NEGATIVE); Resp Syncytial Virus, PCR NEGATIVE (NEGATIVE); SARS-Cov-2 (COVID-19) PCR, MMC NEGATIVE (NEGATIVE)
[2020-12-15] MEDS ORDERED: Enulose10 GM/15 M PO (13:52)
[2020-12-15] MEDS ORDERED: PANT40 PO (13:53)
[2020-12-15] MEDS ORDERED: TADALAFIL5 M1 PO (13:54)
--- NOTE | 2020-12-15 15:04 | NUR ---
PATIENT D/C'D TO [facility] IN [place] VIA [facility]. REPORTS CALLED TO STAFF AT THE FACILITY. DC PACKET AND POLST FORM SENT WITH DATA ANALYTICS ANALYST. POWERGLIDE PULLED PRIOR TO DC. PATIENT DENIES ANY FURTHER QUESTIONS OR CONCERNS.
== END 2020-12-15 15:05 | DRG 441 ==
LOC: ER 02:04 → PCU 04:55 → MEDS 12-07 23:30
PROVIDERS: Emergency Medicine; Internal Medicine; ADMIT Internal Medicine
PROC: 30233N1 Transfusion of Nonautologous Red Blood Cells into Peripheral Vein, Percutaneous Approach (ICD-10-PCS; principal; 2020-12-11)
DX: K72.00 Acute and subacute hepatic failure without coma (principal); J69.0 Pneumonitis due to inhalation of food and vomit; J96.01 Acute respiratory failure with hypoxia; G92 Toxic encephalopathy; J18.9 Pneumonia, unspecified organism; K76.7 Hepatorenal syndrome; R64 Cachexia; E44.0 Moderate protein-calorie malnutrition; J44.0 Chronic obstructive pulmonary disease with (acute) lower respiratory infection; D68.4 Acquired coagulation factor deficiency; Z66 Do not resuscitate; Z51.5 Encounter for palliative care; E83.39 Other disorders of phosphorus metabolism; E87.6 Hypokalemia; D69.59 Other secondary thrombocytopenia; K70.30 Alcoholic cirrhosis of liver without ascites; E83.42 Hypomagnesemia; Z60.2 Problems related to living alone; Z20.822 Contact with and (suspected) exposure to COVID-19; E86.0 Dehydration; K70.10 Alcoholic hepatitis without ascites; D63.8 Anemia in other chronic diseases classified elsewhere; F10.20 Alcohol dependence, uncomplicated; Z88.2 Allergy status to sulfonamides; Z87.891 Personal history of nicotine dependence; Z68.25 Body mass index [BMI] 25.0-25.9, adult; Z79.82 Long term (current) use of aspirin; Z71.41 Alcohol abuse counseling and surveillance of alcoholic
CPT/HCPCS: 0241U; 36415; 36430; 51701; 70450; 71045; 74176; 80048; 80053; 80069; 81001; 82140; 82550; 82553; 83605; 83690; 83735; 83880; 84100; 84145; 84484; 85025; 85027; 85610; 86850; 86900; 86901; 86923; 87040; 87076; 87086; 92526; 92610; 93005; 93010; 94640; 94762; 96365; 96366; 97110; 97112; 97116; 97162; 97166; 97530; 97535; 99285-25; A9270; A9270-GY; C9113; G0008; G0480; J0456; J0696; J1650; J2060; J2354; J2405; J3411; J3430; J3475; J3480; J7030; J7042; J7050; J7060; J7120; P9016; P9046; Q2038